=== PATIENT | male | born 2000 | race Caucasian/White ===

== ENCOUNTER 2021-05-28 21:38 | Emergency (ER) | payer MEDICAID, OTHER ==
--- OUTSIDE RECORDS SUMMARY | 2021-05-28 21:45 | XMS REPORT | Clinical Summary ---
Author Author [facility] Organization [facility] Address Unknown Phone Unavailable Care Team Providers Care Assistant Spa Director Name Role Phone PCP Unavailable Allergies Not on File Medications Not on file Active Problems Not on file Social History Date Tobacco Use Types Packs/Day Years Used Never Assessed Sex Assigned at Date Recorded Not on file Last Filed Vital Signs Not on file Plan of Treatment Not on file Results Not on filefrom Last 3 Months
[2021-05-28 23:25] LABS: CLARITY,URINE CLEAR; COLOR,URINE DARK YELLOW; PH,URINE 5.5 (5-9); PROTEIN,URINE TRACE (NEGATIVE)
[2021-05-28 23:26] LABS: BACTERIA,URINE MODERATE /HPF; BILIRUBIN,URINE 2+ (NEGATIVE); GLUCOSE, URINE (UA) NEGATIVE (NEGATIVE); KETONES,URINE TRACE (NEGATIVE); LEUKOCYTE ESTERASE ,URINE NEGATIVE (NEGATIVE); NITRITE,URINE NEGATIVE (NEGATIVE); RBC,URINE 0-2 /HPF
[2021-05-28 23:37] LABS: AMPHETAMINE SCREEN, URINE NEGATIVE (NEGATIVE); BARBITURATE SCREEN URINE NEGATIVE (NEGATIVE); BENZODIAZEPINES SCREEN URINE NEGATIVE (NEGATIVE); CANNABINOID SCREEN, URINE POSITIVE (NEGATIVE); COCAINE SCREEN URINE NEGATIVE (NEGATIVE); METHADONE STAT NEGATIVE (NEGATIVE); METHAMPHETAMINE SCREEN URINE S NEGATIVE (NEGATIVE); OPIATE SCREEN URINE NEGATIVE (NEGATIVE); OXYCODONE STAT NEGATIVE (NEGATIVE); PROPOXYPHENE STAT NEGATIVE (NEGATIVE); TRICYCLIC ANTIDEPRESSANTS SCRE POSITIVE (NEGATIVE)
[2021-05-28] MEDS ORDERED: TRIM/SULFAMETH 160/800 (SEPTRA DS) TAB PO STA (23:42)
[2021-05-28] MEDS ORDERED: IBUPROFEN 800 MG (MOTRIN) TAB PO STA (23:42)
[2021-05-28] MEDS ORDERED: SULF1TAB38 PO (23:47)
[2021-05-28] MEDS ORDERED: IBUP-1780 PO (23:47)
--- NOTE | 2021-05-28 23:48 | ED Back Pain ---
General Chief Complaint: Back Problems Stated Complaint: BACK PAIN Source of Information: Patient History of Present Illness Date Seen by Provider: May 28, 2021 Time Seen by Provider: 23:20 Initial Comments 20-year-old male presenting with complaints of left flank pain. He states this started around 3 PM and has persisted and gotten worse throughout the day. He had not plan to come to the emergency department but his girlfriend leaving him to get checked out. He had spent most of the fishing and outside. He had recently had a kidney stone a few months ago. He denies any nausea, vomiting, diarrhea, change in his bowels, cough, shortness of breath. His pain is worse with movement and palpation. He has been eating and drinking normally. He denies any pain with urination but states he has not been urinating as much today Allergies and Home Medications Allergies Coded Allergies: No Known Drug Allergies (Unverified , 05/28/21) Home Medications Ibuprofen 800 Mg Tablet, 800 MG PO Q8H PRN for PAIN Prescribed by: JANE BUTLER on 05/28/212346 Sulfamethoxazole/Trimethoprim 1 Each Tablet, 1 EACH PO BID Prescribed by: JANE BUTLER on 05/28/212346 Patient Home Medication List Home Medication List Reviewed: Yes Review of Systems Constitutional: No chills, No fever; malaise EENTM: no symptoms reported Respiratory: no symptoms reported Cardiovascular: no symptoms reported Gastrointestinal: other (Left flank pain) Genitourinary: decreased output; No dysuria Musculoskeletal: back pain (Left flank pain) Skin: No rash Psychiatric/Neurological: Denies Headache Past Hypnplr-Ppqxcw-Pmtquq Hx Patient Social History Tobacco Use?: Yes Tobacco type used: Cigarettes Smoking Status: Current Everyday Smoker Smokeless Tobacco Frequency: Current Everyday User Substance use?: Yes Substance type: Marijuana Alcohol Use?: Yes Alcohol Frequency: Once in a while Pt feels they are or have been: No Immunizations Up To Date First/Initial COVID19 Vaccinat: NOV 2020 Second COVID19 Vaccination Dirk: 2020 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 oz. kg; BMI Method: General Appearance: No Apparent Distress, WD/WN Neck: Full Range of Motion, Supple Cardiovascular: Regular Rate, Rhythm, Normal Peripheral Pulses Respiratory: Chest Non Tender, Lungs Clear, Normal Breath Sounds, No Accessory Muscle Use, No Respiratory Distress Gastrointestinal: Normal Bowel Sounds, No Pulsatile Mass, Non Tender, Soft Back: CVA Tenderness (L) Extremity: Normal Capillary Refill, Normal Inspection, No Pedal Edema Neurologic/Psychiatric: Alert, Oriented x3, No Motor/Sensory Deficits Skin: Normal Color, Warm/Dry Progress/Results/Core Measures Results/Orders Lab Results Laboratory Tests Test 05/28/21 23:18 Range/Units Urine Color DARK YELLOW Urine Clarity CLEAR Urine pH 5.5 5-9 Urine Specific [place] >=1.030 1.016-1.022 Urine Protein TRACE H NEGATIVE Urine Glucose (UA) NEGATIVE NEGATIVE Urine Ketones TRACE H NEGATIVE Urine Nitrite NEGATIVE NEGATIVE Urine Bilirubin 2+ H NEGATIVE Urine Urobilinogen 0.2 < = 1.0 MG/DL Urine Leukocyte Esterase NEGATIVE NEGATIVE Urine RBC (Auto) NEGATIVE NEGATIVE Urine RBC 0-2 /HPF Urine WBC 5-10 H /HPF Urine Squamous Epithelial Cells NONE /HPF Urine Crystals NONE /LPF Urine Bacteria MODERATE H /HPF Urine Casts PRESENT /LPF Urine Granular Casts 2-5 H /LPF Urine Mucus LARGE H /LPF Urine Culture Indicated YES Urine Opiates Screen NEGATIVE NEGATIVE Urine Oxycodone Screen NEGATIVE NEGATIVE Urine Methadone Screen NEGATIVE NEGATIVE Urine Propoxyphene Screen NEGATIVE NEGATIVE Urine Barbiturates Screen NEGATIVE NEGATIVE Ur Tricyclic Antidepressants Screen POSITIVE H NEGATIVE Urine Phencyclidine Screen NEGATIVE NEGATIVE Urine Amphetamines Screen NEGATIVE NEGATIVE Urine Methamphetamines Screen NEGATIVE NEGATIVE Urine Benzodiazepines Screen NEGATIVE NEGATIVE Urine Cocaine Screen NEGATIVE NEGATIVE Urine Cannabinoids Screen POSITIVE H NEGATIVE My Orders Orders - JANE BUTLER MD Ua Culture If Indicated (05/28/21 22:27) Drug Screen Stat (Urine) (05/28/21 22:27) Urine Culture (05/28/21 23:18) Sulfamethoxazole/Trimet Ds Tab (Bactrim (05/28/21 23:42) Ibuprofen Tablet (Motrin Tablet) (05/28/21 23:42) Vital Signs/I&O 05/28/21 23:59 Temp 37.0 Pulse 99 Resp 14 B/P (MAP) 132/77 Pulse Ox 98 O2 Delivery Room Air Progress Progress Note : Progress Note Urinalysis obtained and showed signs of infection. He had elevated specific gravity to go along with dehydration. Patient refused IV and blood work with IV fluids. He was willing to take oral medication and drink fluids. Since he was not vomiting or having diarrhea it seems reasonable to allow him to take an oral route for rehydration. We will start him on antibiotics as well as continue with anti-inflammatories for pain. Counseled on follow-up and return precautions. Departure Impression Primary Impression: Left flank pain Additional Impressions: Dehydration Cystitis without hematuria Disposition: HOME, SELF-CARE Condition: Stable Departure-Patient Inst. Decision time for Depature: 23:44 Referrals: SELFMANJINDER MD (PCP/Family) Primary Care Physician Patient Instructions: Urinary Tract Infection, Adult ED, Dehydration, Adult ED, Flank Pain ED Add. Discharge Instructions: Drink plenty of water and electrolyte drinks to stay well hydrated Follow up with clinic for continued concerns or if worsening symptoms such as fever over 101 F, uncontrolled vomiting or seeing blood in your urine then return to ER or seek medical care for recheck Take full course of antibiotics to treat for urine infection All discharge instructions reviewed with patient and/or family. Voiced understanding. Scripts Ibuprofen (Ibuprofen) 800 Mg Tablet 800 MG PO Q8H PRN for PAIN for 10 Days, #30 TAB 0 Refills Prov: JANE BUTLER MD 05/28/21 Sulfamethoxazole/Trimethoprim (Bactrim Ds Tablet) 1 Each Tablet 1 EACH PO BID for UTI for 10 Days, #20 TAB 0 Refills Prov: JANE BUTLER MD 05/28/21 Work/School Note: Work Release Form Date Seen in the Emergency Department: May 28, 2021 Return to Work: May 29, 2021 Other Restrictions Listed Below: Please excuse from being late to work due to being seen in ER JANE BUTLER MD May 28, 2021 23:48
[2021-05-28 23:59] VITALS: BP 132/77
== END 2021-05-28 23:59 | disposition home or self-care (01) ==
LOC: ER FS 21:42
DX: E86.0 Dehydration (principal); N30.90 Cystitis, unspecified without hematuria; F17.210 Nicotine dependence, cigarettes, uncomplicated
CPT/HCPCS: 80306; 81000; 87088; 99283